=== PATIENT | male | born 1980 | race Caucasian/White ===

== ENCOUNTER 2016-04-14 15:28 | Emergency (ER) | payer OTHER ==
[~2016-04-14 15:28] MED LIST: AMBIEN 10MG10 MG PO; DEPAKOTE ER500 M1 PO; DIAMOX SEQUELS500 M1 PO; FIORICET 325 MG1 TA1 PO; INDERAL; KLONOPIN0.5 MG PO; LITHIUM CARB300 MG PO; LUNESTA3 MG PO; LYRICA200 MG PO; SEROQUEL XR50 MG PO
[2016-04-14] MEDS ORDERED: ORPHENADRINE C100 MG PO (16:04)
[2016-04-14] MEDS ORDERED: IBU800 M1 PO (16:04)
[2016-04-15] MEDS ORDERED: TRAMADOL 50 MG TAB PO (14:17)
== END 2016-04-14 16:06 | disposition home or self-care (01) ==
LOC: ED 15:28
DX: S49.80XA Other specified injuries of shoulder and upper arm, unspecified arm, initial encounter (principal); Y93.B3 Activity, free weights; Y92.018 Other place in single-family (private) house as the place of occurrence of the external cause
CPT/HCPCS: A4565

== ENCOUNTER 2016-04-15 14:06 | Emergency (ER) | payer OTHER ==
[~2016-04-15 14:06] MED LIST changes: +IBU800 M1 PO; +ORPHENADRINE C100 MG PO
[2016-04-15] MEDS ORDERED: TRAMADOL 50 MG TAB PO (14:17)
== END 2016-04-15 14:45 | disposition home or self-care (01) ==
LOC: ED 14:06
DX: M25.512 Pain in left shoulder (principal)
CPT/HCPCS: J0595

== ENCOUNTER 2017-05-20 19:28 | Emergency (ER) | payer OTHER ==
[~2017-05-20] VITALS: Ht 188 cm; Wt 120.1 kg
[~2017-05-20 19:28] MED LIST changes: +TRAMADOL 50 MG TAB PO
[2017-05-20] MEDS ORDERED: SAPHRIS5 MG SL (19:45)
[2017-05-20] MEDS ORDERED: TROKENDI XR100 MG PO (19:45)
[2017-05-20] MEDS ORDERED: EFFEXOR XR75 M2 PO (19:45)
[2017-05-20] MEDS ORDERED: CATAPRES 0.1MG0.1 MG (20:09)
[2017-05-20] MEDS ORDERED: FIORICET 325 MG1 TAB PO (20:43)
[2017-05-20 20:54] VITALS: BP 149/68
== END 2017-05-20 20:54 | disposition home or self-care (01) ==
LOC: ED 19:28
DX: R51 Headache (principal); G43.909 Migraine, unspecified, not intractable, without status migrainosus; F43.10 Post-traumatic stress disorder, unspecified; Z87.820 Personal history of traumatic brain injury

== ENCOUNTER 2018-07-28 17:47 | Inpatient (IN) | payer OTHER ==
[~2018-07-28] VITALS: Ht 188 cm; Wt 119.1 kg
[~2018-07-28 17:47] MED LIST changes: +CATAPRES 0.1MG0.1 MG; +FIORICET 325 MG1 TAB PO; +SAPHRIS5 MG SL; +TROKENDI XR200 MG PO; +VENLAFAXINE HY150 MG PO
[2018-07-28] MEDS ORDERED: AIMOVIG AU70 MG/1 ML SQ (17:56)
[2018-07-28] MEDS ORDERED: LITHIUM 60600 MG/CAP PO (17:58)
[2018-07-28 18:38] LABS: EOS # 0.4 (0.04-0.40); EOS % 2.9 % (0.0-4.0); HEMATOCRIT 48.6 % (42.0-52.0); HEMOGLOBIN 17.1 g/dL (13.5-18.0); LYMPH# 2.3 (1.50-4.00); MEAN CELL VOLUME 84 fl (78-100); MEAN CORPUSCULAR HEMOGLOBIN 30 pg (27-31); MEAN CORPUSCULAR HGB CONC 35 g/dL (33-37); MEAN PLATELET VOLUME 9.9 fl (7.4-10.4); MONO # 1.4 (0.20-0.80); NEU # 8.2 (1.40-6.50); PLATELET COUNT 236 K/mm3 (130-400); RED BLOOD COUNT 5.77 M/mm3 (4.20-5.60); RED CELL DISTRIBUTION WIDTH 13.4 % (11.5-14.5); WHITE BLOOD COUNT 12.2 K/mm3 (4.8-10.8)
[2018-07-28 19:01] LABS: ALBUMIN 4.7 g/dL (3.5-5.0); CALCIUM 10.7 mg/dL (8.4-10.2); POTASSIUM 3.8 mmol/L (3.6-5.0); TOTAL BILIRUBIN 0.9 mg/dL (0.2-1.3); TOTAL PROTEIN 7.4 g/dL (6.3-8.2)
[2018-07-28 19:30] LABS: PH-URINE 5.5 (5.0 - 8.0); URINE APPEARANCE CLEAR; URINE BILIRUBIN NEGATIVE (NEGATIVE); URINE BLOOD NEGATIVE (NEGATIVE); URINE COLOR YELLOW; URINE GLUCOSE NEGATIVE (NEGATIVE); URINE KETONE NEGATIVE (NEGATIVE); URINE NITRATE NEGATIVE (NEGATIVE); URINE PROTEIN(semi-quant) NEGATIVE (NEGATIVE); URINE UROBILINOGEN NORMAL (NORMAL)
[2018-07-28 19:31] LABS: URINE LEUKOCYTE ESTERASE TRACE (NEGATIVE); URINE MUCUS PRESENT (NOT PRESENT)
[2018-07-29] VITALS (7 sets, daily range): BP systolic 100–124; BP diastolic 63–88
[2018-07-29 06:41] LABS: HEMATOCRIT 43.6 % (42.0-52.0); HEMOGLOBIN 15.2 g/dL (13.5-18.0); LYMPH# 2.2 (1.50-4.00); MEAN CELL VOLUME 86 fl (78-100); MEAN CORPUSCULAR HEMOGLOBIN 30 pg (27-31); MEAN CORPUSCULAR HGB CONC 35 g/dL (33-37); MEAN PLATELET VOLUME 10.1 fl (7.4-10.4); MONO # 1.1 (0.20-0.80); NEU # 5.3 (1.40-6.50); PLATELET COUNT 210 K/mm3 (130-400); RED BLOOD COUNT 5.09 M/mm3 (4.20-5.60); RED CELL DISTRIBUTION WIDTH 13.4 % (11.5-14.5); WHITE BLOOD COUNT 9.3 K/mm3 (4.8-10.8)
[2018-07-29 06:54] LABS: EOS # 0.7 (0.04-0.40)
[2018-07-29 07:03] LABS: ALBUMIN 3.7 g/dL (3.5-5.0); CALCIUM 9.1 mg/dL (8.4-10.2); POTASSIUM 3.9 mmol/L (3.6-5.0); TOTAL PROTEIN 5.9 g/dL (6.3-8.2)
[2018-07-29 13:45] LABS: PH-URINE 5.5 (5.0 - 8.0); URINE APPEARANCE HAZY; URINE BILIRUBIN NEGATIVE (NEGATIVE); URINE BLOOD NEGATIVE (NEGATIVE); URINE COLOR YELLOW; URINE GLUCOSE NEGATIVE (NEGATIVE); URINE KETONE NEGATIVE (NEGATIVE); URINE LEUKOCYTE ESTERASE NEGATIVE (NEGATIVE); URINE NITRATE NEGATIVE (NEGATIVE); URINE PROTEIN(semi-quant) TRACE mg/dL (NEGATIVE); URINE UROBILINOGEN NORMAL (NORMAL)
[2018-07-29 13:46] LABS: URINE MUCUS PRESENT (NOT PRESENT)
[2018-07-29 17:01] LABS: PTH,INTACT 40.7 pg/mL (6.6-88.9)
[2018-07-29 17:03] LABS: CALCIUM, IONIZED, SERUM 1.35 mmol/L (1.19-1.41)
[2018-07-30 03:35] VITALS: BP 118/78
[2018-07-30 06:13] VITALS: BP 125/73
[2018-07-30 07:18] LABS: EOS # 0.2 (0.04-0.40); EOS % 3.4 % (0.0-4.0); HEMATOCRIT 45.5 % (42.0-52.0); HEMOGLOBIN 14.2 g/dL (13.5-18.0); LYMPH# 0.9 (1.50-4.00); MEAN CELL VOLUME 95 fl (78-100); MEAN CORPUSCULAR HEMOGLOBIN 30 pg (27-31); MEAN CORPUSCULAR HGB CONC 31 g/dL (33-37); MEAN PLATELET VOLUME 11.7 fl (7.4-10.4); MONO # 0.6 (0.20-0.80); NEU # 3.4 (1.40-6.50); PLATELET COUNT 75 K/mm3 (130-400); RED BLOOD COUNT 4.77 M/mm3 (4.20-5.60); RED CELL DISTRIBUTION WIDTH 15.3 % (11.5-14.5); WHITE BLOOD COUNT 5.1 K/mm3 (4.8-10.8)
[2018-07-30 07:38] LABS: CALCIUM 8.5 mg/dL (8.4-10.2); POTASSIUM 4.2 mmol/L (3.6-5.0)
[2018-07-30] MEDS ORDERED: ACETAMINOPHEN-O1 TAB PO (10:12)
== END 2018-07-30 10:39 | disposition home or self-care (01) | DRG 390 ==
LOC: ED 17:47 → MED/SURG 22:44
PROVIDERS: Nurse Practitioner Primary Care; ADMIT Family Medicine
DX: K56.609 Unspecified intestinal obstruction, unspecified as to partial versus complete obstruction (principal); F43.12 Post-traumatic stress disorder, chronic; F41.9 Anxiety disorder, unspecified; Z87.820 Personal history of traumatic brain injury; R31.9 Hematuria, unspecified
CPT/HCPCS: G0378; J0595; J1170; J1885; J2060; J2270; J2405; J3490; J7030; Q9967

== ENCOUNTER 2018-08-04 20:40 | Emergency (ER) | payer OTHER ==
[~2018-08-04] VITALS: Ht 188 cm; Wt 117.5 kg
[~2018-08-04 20:40] MED LIST changes: +ACETAMINOPHEN-O1 TAB PO; +AIMOVIG AU70 MG/1 ML SQ; +LITHIUM 60600 MG/CAP PO
[2018-08-04 20:56] VITALS: BP 110/76
== END 2018-08-04 23:22 | disposition home or self-care (01) ==
LOC: ED 20:40
DX: G47.00 Insomnia, unspecified (principal); R51 Headache; F43.10 Post-traumatic stress disorder, unspecified; F31.9 Bipolar disorder, unspecified; Z98.890 Other specified postprocedural states
CPT/HCPCS: J1200; J1885

== ENCOUNTER 2019-02-20 14:30 | Emergency (ER) | payer OTHER ==
[~2019-02-20] VITALS: Ht 188 cm; Wt 129.5 kg
[2019-02-20 14:34] VITALS: BP 139/70
[2019-02-20] MEDS ORDERED: QUETIAPINE FUM200 M2 PO (14:37)
[2019-02-20] MEDS ORDERED: ERGOCALCIFER50000 IU PO (14:37)
[2019-02-20] MEDS ORDERED: TESTOSTERO200 MG/1 M IM (14:37)
[2019-02-20] MEDS ORDERED: SERTRALINE HYD100 MG PO (14:37)
== END 2019-02-20 14:58 | disposition home or self-care (01) ==
LOC: ED 14:30
DX: G43.909 Migraine, unspecified, not intractable, without status migrainosus (principal); F43.10 Post-traumatic stress disorder, unspecified; Z86.73 Personal history of transient ischemic attack (TIA), and cerebral infarction without residual deficits
CPT/HCPCS: J1885

== ENCOUNTER 2019-06-15 02:14 | Emergency (ER) | payer OTHER ==
[~2019-06-15] VITALS: Ht 188 cm; Wt 131.8 kg
[~2019-06-15 02:14] MED LIST changes: +ERGOCALCIFER50000 IU PO; +QUETIAPINE FUM200 M2 PO; +SERTRALINE HYD100 MG PO; +TESTOSTERO200 MG/1 M IM
[2019-06-15 05:51] VITALS: BP 133/74
[2019-06-15] MEDS ORDERED: FIORICET 325 MG1 TAB PO (06:01)
[2019-06-16] MEDS ORDERED: EMGALITY S120 MG/1 M SQ (13:37)
[2019-06-16] MEDS ORDERED: AMLODIPINE BESYL5 MG PO (13:37)
== END 2019-06-15 06:05 | disposition home or self-care (01) ==
LOC: ED 02:14
DX: G43.909 Migraine, unspecified, not intractable, without status migrainosus (principal); F43.10 Post-traumatic stress disorder, unspecified
CPT/HCPCS: J0595; J1885

== ENCOUNTER 2019-08-12 12:03 | Emergency (ER) | payer OTHER ==
[~2019-08-12] VITALS: Ht 188 cm; Wt 125.0 kg
[~2019-08-12 12:03] MED LIST changes: +AMLODIPINE BESYL5 MG PO; +EMGALITY S120 MG/1 M SQ
[2019-08-12] MEDS ORDERED: FIORICET 325 MG1 TAB PO (12:45)
[2019-08-12 13:23] VITALS: BP 104/76
== END 2019-08-12 13:20 | disposition home or self-care (01) ==
LOC: ED 12:03
DX: G43.909 Migraine, unspecified, not intractable, without status migrainosus (principal); R11.2 Nausea with vomiting, unspecified; F32.9 Major depressive disorder, single episode, unspecified; F43.10 Post-traumatic stress disorder, unspecified; Z90.89 Acquired absence of other organs
CPT/HCPCS: J1885

== ENCOUNTER 2019-10-31 16:58 | Emergency (ER) | payer OTHER ==
[~2019-10-31] VITALS: Ht 188 cm; Wt 129.2 kg
[2019-10-31] MEDS ORDERED: LOPRESSOR 550 MG/TAB PO (17:24)
[2019-10-31] MEDS ORDERED: ESKALITH C450 MG/TAB (17:24)
[2019-10-31] MEDS ORDERED: PRISTIQ50 M1 PO (17:24)
[2019-10-31] MEDS ORDERED: DEPAKOTE ER 50500 MG PO (17:25)
[2019-10-31] MEDS ORDERED: XANAX0.5 M1 PO (17:36)
[2019-10-31 18:03] VITALS: BP 142/101
== END 2019-10-31 17:44 | disposition home or self-care (01) ==
LOC: ED 16:58
DX: F41.9 Anxiety disorder, unspecified (principal); I10 Essential (primary) hypertension; G43.909 Migraine, unspecified, not intractable, without status migrainosus; Z88.2 Allergy status to sulfonamides
CPT/HCPCS: J2060

== ENCOUNTER 2021-03-26 14:21 | Emergency (ER) | payer OTHER ==
[~2021-03-26 14:21] MED LIST changes: +DEPAKOTE ER 50500 MG PO; +ESKALITH C450 MG/TAB; +LOPRESSOR 550 MG/TAB PO; +PRISTIQ50 M1 PO; +XANAX0.5 M1 PO
[2021-03-26] MEDS ORDERED: QUETIAPINE FUM400 MG PO (14:37)
[2021-03-26] MEDS ORDERED: VYVANSE10 MG (14:38)
[2021-03-26] MEDS ORDERED: FIORICET 325 MG1 TAB PO (15:42)
[2021-03-26 15:56] VITALS: BP 131/90
== END 2021-03-26 15:56 | disposition home or self-care (01) ==
LOC: ED 14:21
DX: G43.909 Migraine, unspecified, not intractable, without status migrainosus (principal)
CPT/HCPCS: J1200; J2270; J2550; J7040

== ENCOUNTER 2021-12-27 15:02 | Emergency (ER) | payer OTHER ==
[~2021-12-27] VITALS: Ht 188 cm; Wt 134.9 kg
[~2021-12-27 15:02] MED LIST changes: +QUETIAPINE FUM400 MG PO; +VYVANSE10 MG
[2021-12-27 15:20] VITALS: BP 146/88
== END 2021-12-27 15:50 | disposition home or self-care (01) ==
LOC: ED 15:02
DX: M79.602 Pain in left arm (principal); M25.562 Pain in left knee; Z76.5 Malingerer [conscious simulation]; Z98.890 Other specified postprocedural states; Z28.310 Unvaccinated for COVID-19

== ENCOUNTER 2023-12-15 16:07 | Emergency (ER) | payer OTHER ==
[~2023-12-15] VITALS: Ht 188 cm; Wt 131.8 kg
[~2023-12-15 16:07] MED LIST changes: +DEXTROAMPH SACC30 MG PO; +INDERAL 10MG10 MG PO; +KETOROLAC10 MG PO; +NORCO 325 MG-51 TA1 PO; +OLANZAPINE10 M3 PO; +PREGABALIN200 MG PO
[2023-12-15 16:46] LABS: PH-URINE 5.5 (5.0 - 8.0); URINE APPEARANCE CLEAR (CLEAR); URINE BILIRUBIN 1+ (NEGATIVE); URINE COLOR YELLOW (YELLOW); URINE GLUCOSE NEGATIVE (NEGATIVE); URINE KETONE NEGATIVE (NEGATIVE); URINE NITRATE NEGATIVE (NEGATIVE); URINE PROTEIN(semi-quant) TRACE (NEGATIVE)
[2023-12-15 16:47] LABS: URINE BLOOD NEGATIVE (NEGATIVE); URINE LEUKOCYTE ESTERASE NEGATIVE (NEGATIVE); URINE MUCUS PRESENT (NOT PRESENT)
[2023-12-15] MEDS ORDERED: SOMA350 M1 PO (16:59)
[2023-12-15] MEDS ORDERED: Orphenadrine 60 MG/2ML AMP IM ONE (17:00)
[2023-12-15 17:08] VITALS: BP 132/84
== END 2023-12-15 17:09 | disposition home or self-care (01) ==
LOC: ED 16:07
PROVIDERS: Family Medicine
DX: M54.50 Low back pain, unspecified (principal); G89.29 Other chronic pain
CPT/HCPCS: J2360